=== PATIENT | female | born 1940 | race Caucasian/White ===

== ENCOUNTER 2016-06-28 14:42 | Emergency (ER) | payer OTHER ==
--- NOTE | 2016-06-28 15:50 | EDPHY ---
H & P Time Seen by Provider: 06/28/16 15:18 HPI/ROS: CHIEF COMPLAINT: I have pneumonia HISTORY OF PRESENT ILLNESS: Patient is a 76-year-old female who presents to the emergency department reporting that she has a pneumonia. The patient became ill last Thursday with cough and fever to 101. She denies shortness of breath. She was started on azithromycin by Dr. Klein. On she saw Dr. Klein and was switched from azithromycin to doxycycline. Patient states for the past 2 days she has had increased nausea and vomiting. She thinks maybe secondary to doxycycline. She was told to come to the emergency department if she developed nausea or vomiting. She states her fever has defervesced. She continues to have mild shortness of breath and a nonproductive cough. No chest pain or abdominal pain. No diarrhea. REVIEW OF SYSTEMS: My complete review of systems is negative except as mentioned in the HPI. Past Medical/Surgical History: Includes hypercholesterolemia, breast cancer, DVT, PE, chronic back pain Past surgical history: Breast biopsy, bilateral mastectomy, lumpectomy, rotator cuff repair, eye surgery Social history: Patient does not smoke. She lives with her . Smoking Status: Never smoked Physical Exam: 36.7, 102/71, 60, 16, 98% on room air GENERAL: No acute distress, alert. HEENT: Eyes normal to inspection, normal pharynx, no signs of dehydration. NECK: No thyromegaly, no lymphadenopathy, supple. RESPIRATORY: patient has bilateral rales at the bases. Mild wheezing on the right mid lower lung. CVS: Regular rate and rhythm, no rubs, murmurs, or gallops. ABDOMEN: Soft, nontender, nondistended, no organomegaly. BACK: Normal to inspection, no CVA tenderness. SKIN: Normal color, no rash, warm, dry. No pallor. EXTREMITIES: No pedal edema, no calf tenderness, no Homans sign or cords, no joint swelling. NEURO/PSYCH: Alert and oriented, normal mood and affect, normal motor sensory exam. Constitutional: Initial Vital Signs Temperature (C) 36.7 C 06/28/16 14:55 Heart Rate 68 06/28/16 14:55 Respiratory Rate 16 06/28/16 14:55 Blood Pressure 102/71 06/28/16 14:55 O2 Sat (%) 98 06/28/16 14:55 O2 Delivery Mode Room Air Allergies/Adverse Reactions: tramadol Allergy (Intermediate, Verified 07/12/13 00:01) hallucinations alatrofloxacin mesylate [From Trovan] Allergy (Mild, Verified 04/07/14 19:42) GI alendronate sodium [From Fosamax] Allergy (Mild, Verified 07/12/13 00:01) GI amoxicillin trihydrate [From Trimox] Allergy (Mild, Verified 04/07/14 19:42) GI cefuroxime axetil [From Ceftin] Allergy (Mild, Verified 07/12/13 00:01) GI cetirizine HCl [From Zyrtec] Allergy (Mild, Verified 07/12/13 00:01) headache ciprofloxacin Allergy (Mild, Verified 07/12/13 00:01) GI citalopram hydrobromide [From Celexa] Allergy (Mild, Verified 07/12/13 00:01) elevated BP flavoxate HCl [From Urispas] Allergy (Mild, Verified 07/12/13 00:01) increased HR; insomnia loratadine [From Claritin-D 12 Hour] Allergy (Mild, Verified 07/12/13 00:01) nervousness and insomnia methocarbamol Allergy (Mild, Verified 07/12/13 00:01) GI montelukast sodium [From Singulair] Allergy (Mild, Verified 07/12/13 00:01) headache naproxen Allergy (Mild, Verified 07/12/13 00:01) GI pseudoephedrine sulfate [From Claritin-D 12 Hour] Allergy (Mild, Verified 00:01) nervousness and insomnia trovafloxacin mesylate [From Trovan] Allergy (Mild, Verified 07/12/13 00:01) GI diazepam Allergy (Unknown, Verified 07/12/13 00:01) "could not tolerate" gabapentin [From Neurontin] Allergy (Unknown, Verified 07/12/13 00:01) "could not tolerate" acetaminophen [From Roxicet] Allergy (Verified 07/12/13 00:01) GI clarithromycin [From Biaxin] Allergy (Verified 07/12/13 00:01) hallucinations and headache levofloxacin [From Levaquin] Allergy (Verified 07/12/13 00:01) sweating, hallucinations, headaches oxycodone HCl [From Roxicet] Allergy (Verified 07/12/13 00:01) GI duratuss Allergy (Mild, Uncoded 07/12/13 00:01) nervousness indocet Allergy (Mild, Uncoded 07/12/13 00:01) nervous and dizzy Home Medications: Medication Instructions Recorded Aspirin [Aspirin 81mg (*)] 81 mg PO DAILY 07/14/15 Ca/D3/Mag/Zinc/Preet/Navneet/Mgbor 1 each PO DAILY 07/14/15 [Caltrate 600+D3+Min Chew Tab] Eletriptan HBr [Relpax] 40 mg PO PRN PRN 07/14/15 Epinastine 0.05% [Elestat 0.05%] 1 drops EACHEYE BID 07/14/15 Fexofenadine HCl [Bambi Allergy] 60 mg PO BID 07/14/15 Herbals/Supplements -Info Only 1 ea PO DAILY 07/14/15 Mometasone Furoate Nasal [Nasonex] 1 sprays NASAL DAILY PRN 07/14/15 Multivitamins [Multivitamin (*)] 1 each PO DAILY 07/14/15 Naproxen Sodium [Aleve 220 MG (*)] 220 - 440 mg PO DAILY PRN 07/14/15 Sertraline HCl [Zoloft] 100 mg PO DAILY 07/14/15 Zolpidem Tartrate [Ambien 5MG (*)] 5 mg PO HS PRN 07/14/15 celeCOXIB [Celebrex (*)] 200 mg PO DAILY PRN 07/14/15 Doxycycline Calcium 06/28/16 Ondansetron Odt [Zofran Odt 4 mg 4 mg PO Q4PRN PRN #7 tab 06/28/16 (*)] Medical Decision Making - Diagnostics EKG Interpretation: EKG shows normal sinus rhythm, normal rate, normal axis, normal intervals. There are no ST or T-wave abnormalities. EKG is normal as interpreted by me. ED Course/Re-evaluation: In the emergency department I discussed possible etiologies with the patient and . I answered all her questions. I reviewed the patient's previous medical record. I also reviewed the documentation the patient brought from home. Laboratory studies, chest x-ray were ordered. Chest x-ray: No acute disease noted. Please refer to the dictated report by the radiologist. I personally reviewed the imaging studies. Patient's laboratory studies were unremarkable. I discussed the results with the patient and answered all her questions. On recheck she was sitting on comfortable in the bed. She had no respiratory distress at baseline. She did have mild crackles bilaterally. I paged the patient's primary care provider, Dr. Begum. I spoke with Dr. Guerrier who was on-call. Because the patient has no focal infiltrate on x-ray we felt the patient could have a doxycycline discontinue. The patient was feeling this was making her sick. I discussed this plan with the patient. I answered all her questions. She was given warnings. She will continue to use her inhaler. She will be given a prescription for ondansetron. Differential Diagnosis: My differential includes but is not limited to influenza, pneumonia, bronchitis , viral illness, empyema, CHF, PE, bacteremia, sepsis - Data Points Laboratory Results: Laboratory Results 06/28/16 16:50 06/28/16 16:50 06/28/16 06/28/16 16:59 16:50 WBC 5.71 10^3/uL (3.80-9.50) RBC 5.30 10^6/uL (4.18-5.33) Hgb 15.2 g/dL (12.6-16.3) Hct 45.3 % (38.0-47.0) MCV 85.5 fL (81.5-99.8) MCH 28.7 pg (27.9-34.1) MCHC 33.6 g/dL (32.4-36.7) RDW 14.5 % (11.5-15.2) Plt Count 121 L 10^3/uL (150-400) MPV 9.8 fL (8.7-11.7) Neut % (Auto) 71.6 % (39.3-74.2) Lymph % (Auto) 18.4 % (15.0-45.0) [place] % (Auto) 7.9 % (4.5-13.0) Eos % (Auto) 0.9 % (0.6-7.6) Baso % (Auto) 0.5 % (0.3-1.7) Nucleat RBC Rel Count 0.0 % (0.0-0.2) Absolute Neuts (auto) 4.09 10^3/uL (1.70-6.50) Absolute Lymphs (auto) 1.05 10^3/uL (1.00-3.00) Absolute Monos (auto) 0.45 10^3/uL (0.30-0.80) Absolute Eos (auto) 0.05 10^3/uL (0.03-0.40) Absolute Basos (auto) 0.03 10^3/uL (0.02-0.10) Absolute Nucleated RBC 0.00 10^3/uL (0-0.01) Immature Gran % 0.7 % (0.0-1.1) Immature Gran # 0.04 10^3/uL (0.00-0.10) VBG Lactic Acid 1.1 mmol/L (0.7-2.1) Sodium 143 mEq/L (134-144) Potassium 4.0 mEq/L (3.5-5.2) Chloride 105 mEq/L (97-110) Carbon Dioxide 27 mEq/l (22-31) Anion Gap 11 mEq/L (8-16) BUN 21 mg/dL (7-23) Creatinine 0.6 mg/dL (0.6-1.0) Estimated GFR > 60 Glucose 90 mg/dL (70-100) Calcium 8.3 L mg/dL (8.5-10.4) Troponin I < 0.012 ng/mL (0-0.034) NT-Pro-B Natriuret Pep 109 pg/mL (0-450) Influenza Typ A,B (DFA) NEGATIVE FOR FLU (NEGATIVE) Medications Given: Discontinued Medications Methylprednisolone Sodium Succinate (Solu-Medrol) 125 mg IVP EDNOW ONE Stop: 06/28/16 16:28 Last Admin: 06/28/16 17:20 Dose: 125 mg Departure - Departure Disposition: Home, Routine, Self-Care Clinical Impression: Acute bronchitis Qualifiers: Bronchitis organism: unspecified organism Qualifier Code: (J20.9) Acute bronchitis, unspecified Condition: Good Instructions: Acute Bronchitis (ED) Additional Instructions: Continued to use your inhaler. Discontinue your doxycycline. Take ondansetron for nausea or vomiting. Return with increasing shortness of breath or chest pain. You to be seen by her primary care physician on Thursday. Referrals: Yordy Begum MD [Primary Care Provider] - 06/30/16 Prescriptions: Ondansetron Odt [Zofran Odt 4 mg (*)] 4 mg PO Q4PRN PRN #7 tab PRN Reason: For Nausea & Vomiting
--- NOTE | 2016-06-28 16:25 | DX ---
PA and lateral chest. Clinical History: dyspnea Comparison Study: July 14, 2015.. Findings: The lungs are clear. No pleural disease identified. Heart size is normal. Postsurgical changes are noted within the right breast and axilla.. Impression: No acute cardiopulmonary abnormality.
[2016-06-28] MEDS ORDERED: methylPREDNISolone SOD SUCC 125 MG/2 ML VIAL IVP ONE (16:27)
--- NOTE | 2016-06-28 16:33 | CPEKG ---
Heart Rate: 67 RR Interval: 896 P-R Interval: 164 QRSD Interval: 88 QT Interval: 424 QTC Interval: 448 P Neligh: 43 QRS Neligh: 41 T Wave Neligh: 36 EKG Severity - NORMAL ECG - EKG Impression: SINUS RHYTHM Electronically Signed By: Shana Maddox 28-Jun-2016 20:03:44
[2016-06-28 17:02] LABS: % IMMATURE GRANULYOCYTES 0.7 % (0.0-1.1); ABSOLUTE IMMATURE GRANULOCYTES 0.04 10^3/uL (0.00-0.10); ADD DIFF? NO; ADD MORPH? NO; ADD SCAN? NO; ATYPICAL LYMPHOCYTE FLAG 60 (0-99); FRAGMENT RBC FLAG 0 (0-99); HEMATOCRIT 45.3 % (38.0-47.0); HEMOGLOBIN 15.2 g/dL (12.6-16.3); LEFT SHIFT FLG 10 (0-99); LIPEMIA HEMOLYSIS FLAG 80 (0-99); MEAN CELL HEMOGLOBIN 28.7 pg (27.9-34.1); MEAN CELL HEMOGLOBIN CONCENTR. 33.6 g/dL (32.4-36.7); MEAN CELL VOLUME 85.5 fL (81.5-99.8); MEAN PLATELET VOLUME 9.8 fL (8.7-11.7); PLATELET CLUMPS FLAG 0 (0-99); PLATELET COUNT 121 10^3/uL (150-400); RED CELL DISTRIBUTION WIDTH 14.5 % (11.5-15.2)
[2016-06-28 17:14] LABS: ANION GAP 11 mEq/L (8-16); CALCIUM 8.3 mg/dL (8.5-10.4); CARBON DIOXIDE 27 mEq/l (22-31); CHLORIDE 105 mEq/L (97-110); CREATININE 0.6 mg/dL (0.6-1.0); GLOMERULAR FILTRATION RATE > 60; GLUCOSE 90 mg/dL (70-100); SODIUM 143 mEq/L (134-144)
[2016-06-28 17:26] LABS: TROPONIN I < 0.012 ng/mL (0-0.034)
[2016-06-28 18:25] VITALS: BP 115/70; PULSE 68; RESP 16; TEMP 98.8; O2SAT 94
== END 2016-06-28 18:25 | disposition home or self-care (01) ==
DX: J20.9 Acute bronchitis, unspecified (principal); Z85.3 Personal history of malignant neoplasm of breast; Z79.82 Long term (current) use of aspirin
CPT/HCPCS: 96374

== ENCOUNTER 2017-02-25 16:34 | Emergency (ER) | payer OTHER ==
[2017-02-25 16:47] VITALS: RESP 18; TEMP 98.4; O2SAT 97
--- NOTE | 2017-02-25 18:21 | EDPHY ---
H & P Time Seen by Provider: 02/25/17 18:07 HPI/ROS: CHIEF COMPLAINT: Laceration left thumb HISTORY OF PRESENT ILLNESS: 76-year-old [id number] female was cutting a cake, sustained accidental laceration to her left thumb distal phalanx palmar aspect. Occurred shortly prior to arrival. No paresthesia. Tetanus up-to- date. No flexor deficits. PHYSICAL EXAM (Prior to examination, patient consented to physical exam, hands were washed and my usual and customary physical exam procedures followed) 1) GENERAL: Well-developed, well-nourished, alert and oriented. Appears to be in no acute distress. 2) HEAD: Normocephalic 3) HEENT: sclera anicteric 4) LUNGS: Breathing comfortably. 5) SKIN: left thumb distal phalanx palmar aspect 1.5 cm well-demarcated laceration. 6) MUSCULOSKELETAL: flexor and extensor function at the MCP , IP intact no deficits 7) NEUROLOGIC: Full sensation distally, two-point discrimination intact Smoking Status: Never smoked Constitutional: Initial Vital Signs Temperature (C) 36.9 C 02/25/17 16:40 Heart Rate 83 02/25/17 16:40 Respiratory Rate 18 02/25/17 16:40 Blood Pressure 119/98 H 02/25/17 16:40 O2 Sat (%) 97 02/25/17 16:40 O2 Delivery Mode Room Air Allergies/Adverse Reactions: tramadol Allergy (Intermediate, Verified 02/25/17 16:42) hallucinations alatrofloxacin mesylate [From Trovan] Allergy (Mild, Verified 02/25/17 16:42) GI alendronate sodium [From Fosamax] Allergy (Mild, Verified 02/25/17 16:42) GI amoxicillin trihydrate [From Trimox] Allergy (Mild, Verified 02/25/17 16:42) GI cefuroxime axetil [From Ceftin] Allergy (Mild, Verified 02/25/17 16:42) GI cetirizine HCl [From Zyrtec] Allergy (Mild, Verified 02/25/17 16:42) headache ciprofloxacin Allergy (Mild, Verified 02/25/17 16:42) GI citalopram hydrobromide [From Celexa] Allergy (Mild, Verified 02/25/17 16:42) elevated BP flavoxate HCl [From Urispas] Allergy (Mild, Verified 02/25/17 16:42) increased HR; insomnia loratadine [From Claritin-D 12 Hour] Allergy (Mild, Verified 02/25/17 16:42) nervousness and insomnia methocarbamol Allergy (Mild, Verified 02/25/17 16:42) GI montelukast sodium [From Singulair] Allergy (Mild, Verified 02/25/17 16:42) headache naproxen Allergy (Mild, Verified 02/25/17 16:42) GI pseudoephedrine sulfate [From Claritin-D 12 Hour] Allergy (Mild, Verified 16:42) nervousness and insomnia trovafloxacin mesylate [From Trovan] Allergy (Mild, Verified 02/25/17 16:42) GI diazepam Allergy (Unknown, Verified 02/25/17 16:42) "could not tolerate" gabapentin [From Neurontin] Allergy (Unknown, Verified 02/25/17 16:42) "could not tolerate" acetaminophen [From Roxicet] Allergy (Verified 02/25/17 16:42) GI clarithromycin [From Biaxin] Allergy (Verified 02/25/17 16:42) hallucinations and headache levofloxacin [From Levaquin] Allergy (Verified 02/25/17 16:42) sweating, hallucinations, headaches oxycodone HCl [From Roxicet] Allergy (Verified 02/25/17 16:42) GI duratuss Allergy (Mild, Uncoded 07/12/13 00:01) nervousness indocet Allergy (Mild, Uncoded 07/12/13 00:01) nervous and dizzy Home Medications: Medication Instructions Recorded Aspirin [Aspirin 81mg (*)] 81 mg PO DAILY 07/14/15 Ca/D3/Mag/Zinc/Preet/Navneet/Mgbor 1 each PO DAILY 07/14/15 [Caltrate 600+D3+Min Chew Tab] Eletriptan HBr [Relpax] 40 mg PO PRN PRN 07/14/15 Epinastine 0.05% [Elestat 0.05%] 1 drops EACHEYE BID 07/14/15 Fexofenadine HCl [Bambi Allergy] 60 mg PO BID 07/14/15 Herbals/Supplements -Info Only 1 ea PO DAILY 07/14/15 Mometasone Furoate Nasal [Nasonex] 1 sprays NASAL DAILY PRN 07/14/15 Multivitamins [Multivitamin (*)] 1 each PO DAILY 07/14/15 Naproxen Sodium [Aleve 220 MG (*)] 220 - 440 mg PO DAILY PRN 07/14/15 Sertraline HCl [Zoloft] 100 mg PO DAILY 07/14/15 Zolpidem Tartrate [Ambien 5MG (*)] 5 mg PO HS PRN 07/14/15 celeCOXIB [Celebrex (*)] 200 mg PO DAILY PRN 07/14/15 Atorvastatin Calcium [Lipitor 20 20 mg PO DAILY 02/25/17 mg (*)] MDM/Departure - MDM Procedures: Procedure: Laceration repair. I explained the indications, risks and benefits for both laceration repair and anesthetic administration. Verbal consent was obtained from the patient . The laceration on the left thumb was anesthetized using 0.5% bupivicaine without epinephrine digital nerve block. After anesthetic administered the patient was observed for a period of time and had no apparent adverse effects. The wound was cleaned, prepped, draped in normal sterile fashion and explored to its base. No foreign body seen, no foreign bodies palpated. There were no deep structures involved. No tendon injury was identified. The wound was repaired with 5 simple interrupted 5 O Prolene sutures. The wound repair was simple. The procedure was performed by myself. Patient has been informed that scarring will occur, although efforts have been made to minimize this. ED Course/Re-evaluation: Care of patient under supervision of secondary supervising physician Dr Maddox . - Depart Disposition: Home, Routine, Self-Care Clinical Impression: Laceration of left thumb Qualifiers: Encounter type: initial encounter Damage to nail status: without damage Foreign body presence: without foreign body Qualified Code(s): S61.012A - Laceration without foreign body of left thumb without damage to nail, initial encounter Condition: Good Instructions: Laceration (ED) Additional Instructions: Return to the ER if you develop redness, swelling, discharge, warmth to the wound, red streaks going up your arm, or any other symptoms that concern you. Referrals: Return, to the ER in 10 days for suture removal [Other] - 03/07/17
[2017-02-25 19:23] VITALS: BP 133/83; PULSE 61
== END 2017-02-25 19:20 | disposition home or self-care (01) ==
PROC: 0HQGXZZ Repair Left Hand Skin, External Approach (ICD-10-PCS; principal; 2017-02-25)
DX: S61.012A Laceration without foreign body of left thumb without damage to nail, initial encounter (principal); Z79.82 Long term (current) use of aspirin; W26.8XXA Contact with other sharp object(s), not elsewhere classified, initial encounter; Y93.89 Activity, other specified

== ENCOUNTER → 2017-04-18 | Outpatient (CLI) | payer OTHER | LOC: FIMAGING 08:51 | PROVIDERS: ATTEND Psychiatry & Neurology Neurology | DX: R41.3 Other amnesia (principal) ==

== ENCOUNTER → 2017-09-10 | Outpatient (CLI) | payer OTHER ==
--- NOTE | 2017-09-14 10:01 | CPEEG ---
[f rep st] ELECTROENCEPHALOGRAM DATE OF STUDY: 09/10/2017 DATE OF INTERPRETATION: 09/14/2017 INTERPRETATION: This 4 hour video EEG recording is normal. There were no potentially epileptogenic abnormalities present in the awake or sleep recordings. The patient did not have any clinical events during the video EEG monitoring session. REPORT: This 4-hour video EEG contains sparse, low amplitude, 9 Hz alpha activity over the posterior head regions. There was no abnormal activation at rest, during photic stimulation or hyperventilati on. The patient became drowsy and fell into sustained sleep during the study. There was no abnormal activation during drowsiness, sleep, or during times of arousal. The patient did not have any clini dahlia events during the video EEG monitoring session. /[id number]/MODL
== END ==
LOC: FCPNEURO 07:37
PROVIDERS: ATTEND Psychiatry & Neurology Neurology
DX: R41.3 Other amnesia (principal)

== ENCOUNTER → 2018-05-31 | Outpatient (CLI) | payer OTHER | LOC: FIMAGING 14:18 | PROVIDERS: ATTEND Internal Medicine Rheumatology | DX: Z12.31 Encounter for screening mammogram for malignant neoplasm of breast (principal); M81.0 Age-related osteoporosis without current pathological fracture; Z78.0 Asymptomatic menopausal state ==

== ENCOUNTER 2018-09-06 19:55 | Emergency (ER) | payer OTHER ==
[2018-09-06] MEDS ORDERED: ATROPINE SULFATE 1 MG/ML VIAL IVP ONE (19:59)
[2018-09-06] MEDS ORDERED: EPINEPHrine 1 MG/10 ML SYR IVP ONE ×4 (19:59→20:08)
--- NOTE | 2018-09-06 20:17 | EDPHY ---
H & P Time Seen by Provider: 09/06/18 20:00 HPI/ROS: CHIEF COMPLAINT: Full trauma activation, unresponsive, intubated, status post fall on stairs HISTORY OF PRESENT ILLNESS: The patient is brought in as a full trauma activation. The patient was reportedly found unconscious on a stair landing. It appears that she had fallen down a flight of stairs. She was unresponsive with fixed and dilated pupils. Paramedics reported that she did have a blood pressure in route. She was intubated without complication. She has had no purposeful neurologic activity during their time with the patient. The patient is not anticoagulated. She is on daily aspirin. The patient became bradycardic shortly before her arrival in the emergency department. The patient arrives obtunded intubated and bradycardic. REVIEW OF SYSTEMS: A comprehensive 10 point review of systems is unobtainable secondary to her critical state Source: Family, EMS Exam Limitations: Clinical condition - Medical/Surgical History Hx Asthma: No Hx Chronic Respiratory Disease: No Hx Diabetes: No Hx Cardiac Disease: Yes Hx Renal Disease: No Hx Cirrhosis: No Hx Alcoholism: No Hx HIV/AIDS: No Hx Splenectomy or Spleen Trauma: No Other PMH: HIGH CHOLESTEROL. BREAST CA, MASSECTOMY BILAT, DVT, PE, chronic back and shoulder pain - Social History Smoking Status: Never smoked - Physical Exam Exam: General Appearance: Obtunded, intubated no spontaneous breathing Head: Blood noted at nares Eyes: Pupils equal, round, reactive ENT, Mouth: No hemotympanum, no oral trauma Neck: Cervical collar in place Respiratory: Intubated, no spontaneous respiration, no subcutaneous emphysema Cardiovascular: Regular rate and rhythm Abdomen: No external signs of trauma Skin: No lacerations, No abrasion Back: No palpable deformity Extremities: No gross deformities appreciated Neurological: GCS 3 Allergies/Adverse Reactions: tramadol Allergy (Intermediate, Verified 02/25/17 16:42) hallucinations alatrofloxacin mesylate [From Trovan] Allergy (Mild, Verified 02/25/17 16:42) GI alendronate sodium [From Fosamax] Allergy (Mild, Verified 02/25/17 16:42) GI amoxicillin trihydrate [From Trimox] Allergy (Mild, Verified 02/25/17 16:42) GI cefuroxime axetil [From Ceftin] Allergy (Mild, Verified 02/25/17 16:42) GI cetirizine HCl [From Zyrtec] Allergy (Mild, Verified 02/25/17 16:42) headache ciprofloxacin Allergy (Mild, Verified 02/25/17 16:42) GI citalopram hydrobromide [From Celexa] Allergy (Mild, Verified 02/25/17 16:42) elevated BP flavoxate HCl [From Urispas] Allergy (Mild, Verified 02/25/17 16:42) increased HR; insomnia loratadine [From Claritin-D 12 Hour] Allergy (Mild, Verified 02/25/17 16:42) nervousness and insomnia methocarbamol Allergy (Mild, Verified 02/25/17 16:42) GI montelukast sodium [From Singulair] Allergy (Mild, Verified 02/25/17 16:42) headache naproxen Allergy (Mild, Verified 02/25/17 16:42) GI pseudoephedrine sulfate [From Claritin-D 12 Hour] Allergy (Mild, Verified 16:42) nervousness and insomnia trovafloxacin mesylate [From Trovan] Allergy (Mild, Verified 02/25/17 16:42) GI diazepam Allergy (Unknown, Verified 02/25/17 16:42) "could not tolerate" gabapentin [From Neurontin] Allergy (Unknown, Verified 02/25/17 16:42) "could not tolerate" acetaminophen [From Roxicet] Allergy (Verified 02/25/17 16:42) GI clarithromycin [From Biaxin] Allergy (Verified 02/25/17 16:42) hallucinations and headache levofloxacin [From Levaquin] Allergy (Verified 02/25/17 16:42) sweating, hallucinations, headaches oxycodone HCl [From Roxicet] Allergy (Verified 02/25/17 16:42) GI duratuss Allergy (Mild, Uncoded 07/12/13 00:01) nervousness indocet Allergy (Mild, Uncoded 07/12/13 00:01) nervous and dizzy Home Medications: Medication Instructions Recorded Aspirin [Aspirin 81mg (*)] 81 mg PO DAILY 07/14/15 Ca/D3/Mag/Zinc/Preet/Navneet/Mgbor 1 each PO DAILY 07/14/15 [Caltrate 600-D3-Min Chew Tab] Eletriptan Hydrobromide [Relpax] 40 mg PO PRN PRN 07/14/15 Epinastine 0.05% [Elestat 0.05%] 1 drops EACHEYE BID 07/14/15 Fexofenadine HCl [Bambi Allergy] 60 mg PO BID 07/14/15 Herbals/Supplements -Info Only 1 ea PO DAILY 07/14/15 Mometasone Furoate Nasal [Nasonex] 1 sprays NASAL DAILY PRN 07/14/15 Multivitamins [Multivitamin (*)] 1 each PO DAILY 07/14/15 Naproxen Sodium [Aleve 220 MG (*)] 220 - 440 mg PO DAILY PRN 07/14/15 Sertraline HCl [Zoloft] 100 mg PO DAILY 07/14/15 Zolpidem Tartrate [Ambien 5MG (*)] 5 mg PO HS PRN 07/14/15 celeCOXIB [Celebrex (*)] 200 mg PO DAILY PRN 07/14/15 Atorvastatin Calcium [Lipitor 20 20 mg PO DAILY 02/25/17 mg (*)] Medical Decision Making ED Course/Re-evaluation: Patient's initial blood pressure was 65/30 with a heart rate in the 20s. The patient had 2 IVs established as intraosseous lines. Shortly after arrival the patient was noted to be pulseless. CPR was initiated. Chest x-ray does confirm placement of the tube at the level of the virgen. She received epinephrine and atropine. The patient received continuous high quality CPR for 10 min. She received multiple doses of IV epinephrine. The patient continued to have an agonal PE a rhythm without cardiac activity noted on bedside ultrasound. The patient's arrived in the emergency department. The patient continued to have no spontaneous circulation despite maximum intervention. The critical nature patient's condition was explained to her as well as her likelihood of 0% of meaningful neurologic recovery given her ongoing PE a rhythm. The patient was pronounced at 8:11pm by myself. Family in corner have been notified. Critical Care Time: Critical care time exclusive of procedures and exclusive of the PA's time was 30 minutes, performed by myself, Xu Khanna MD. Departure - Departure Clinical Impression: Cardiac arrest due to trauma, Head injury Referrals: Patient,NotPresent [Primary Care Provider] - As per Instructions
[2018-09-06 21:41] VITALS: BP 0/0
--- NOTE | 2018-09-07 04:21 | GCON ---
[f rep st] CONSULTATION DATE OF CONSULTATION: 09/06/2018 REASON FOR EVALUATION: Trauma. HISTORY OF PRESENT ILLNESS: 78-year-old female who sustained a witnessed fall down a flight of stairs. According to her , he found her unresponsive, actively vomiting with difficulty breathing. Upon EMS arrival, she was intubated in the field and brought to the emergency room rapidly thereafter. Vital signs en route included a blood pressure of 130. She was felt to have fixed and dilated pupils per their report. Upon initial ED evaluation, the patient's blood pressure had dropped to 60/30. Epinephrine and atropine were administered followed thereafter by chest compressions. Cardiac ultrasound was performed showing no cardiac activity at any point from her arrival on. Chest compressions were continued until 8:11 at which point her code was called. The patient . PHYSICAL EXAMINATION: HEENT: Disclosed fixed and dilated pupils on initial arrival. Tympanic membranes were clear. VITAL SIGNS: Heart rate was markedly bradycardic. LUNGS: Disclosed clear breath sounds with bag masking. ABDOMEN: Soft, distended without visible signs of trauma. MUSCULOSKELETAL: Pelvis was without visible signs of trauma. Upper lower extremities were also without visible signs of trauma. The patient's was present shortly after arrival, he was kept apprised of all resuscitative events and present throughout the resuscitation. The patient at 8:11. /[id number]/MODL MTDD
== END 2018-09-06 21:35 | disposition expired ==
LOC: EDUNIT#
PROC: 5A12012 Performance of Cardiac Output, Single, Manual (ICD-10-PCS; principal; 2018-09-06)
DX: S09.8XXA Other specified injuries of head, initial encounter (principal); I46.8 Cardiac arrest due to other underlying condition; E78.00 Pure hypercholesterolemia, unspecified; R40.2431 Glasgow coma scale score 3-8, in the field [EMT or ambulance]; Z86.711 Personal history of pulmonary embolism; Z85.3 Personal history of malignant neoplasm of breast; Z90.13 Acquired absence of bilateral breasts and nipples; W10.8XXA Fall (on) (from) other stairs and steps, initial encounter; Y92.007 Garden or yard of unspecified non-institutional (private) residence as the place of occurrence of the external cause
CPT/HCPCS: 96374